=== PATIENT | male | born 1990 | race Hispanic/Latino ===

== ENCOUNTER 2022-06-05 11:49 | Emergency (ER) | payer SELFPAY ==
[2022-06-05] MEDS ORDERED: Ketorolac Tromethamine 30 MG/ML VIAL ONE (13:25)
[2022-06-05 13:39] LABS: #Eosinphils 0.3 thou/uL (0.0-0.7); #Lymphocytes 2.3 thou/uL (1.20-3.40); #Monocytes 0.7 thou/uL (0.11-0.59); #Neutrophils 3.9 thou/uL (1.40-6.50); %Basophils 0.6 % (0.0-1.0); %Eosinophils 4.5 % (0.0-10.0); %Lymphocytes 31.8 % (21.0-51.0); %Monocytes 9.7 % (0.0-10.0); %Neutrophils 53.4 % (42.0-75.0); Hemoglobin 17.3 g/dL (14.0-18.0); Mean Corpuscular HGB CONC 33.8 g/dL (32.0-36.0); Mean Corpuscular Hemoglobin 31.8 pg (27.0-31.0); Mean Corpuscular Volume 94.2 fl (78.0-98.0); Mean Platelet Volume 6.7 fL (7.4-10.4); Platelet Count 339 10x3/uL (130-400); RBC Distribution Width 11.3 % (11.5-14.5); Red Blood Cell (RBC) Count 5.42 mill/uL (4.70-6.10); White Blood Cell (WBC) Count 7.3 10x3/uL (4.8-10.8)
[2022-06-05 14:01] LABS: ALT (SGPT) 20 U/L (8-55); AST (SGOT) 28 U/L (5-34); Albumin 4.3 g/dL (3.5-5.0); Alkaline Phosphatase 127 U/L (40-110); Anion Gap 14 mmol/L (10-20); BUN (Urea Nitrogen) 12 mg/dL (8.9-20.6); Bilirubin, Total 0.6 mg/dL (0.2-1.2); Calc. Creatinine Clearance 0 mL/min (70-130); Calcium 9.7 mg/dL (7.8-10.44); Carbon Dioxide 22 mmol/L (22-29); Chloride 106 mmol/L (98-107); Estimated GFR 124; Globulin 3.3 g/dL (2.4-3.5); Glucose 85 mg/dL (70-105); Lipase 44 U/L (8-78); Potassium 4.3 mmol/L (3.5-5.1); Protein, Total 7.6 g/dL (6.0-8.3); Sodium 138 mmol/L (136-145)
[2022-06-05 14:04] LABS: Bilirubin Negative (Negative); Blood, Urine Negative (Negative); Clarity Extra Turbid (Clear); Glucose, Urine (Dipstick) Normal (Negative); Ketone, Urine Negative (Negative); Leukocyte Negative Leu/uL (Negative); Nitrite Negative (Negative); Protein, Urine (Dipstick) 10 mg/dL (Neg-Trace); Urobilinogen Normal mg/dL (Less than 2)
[2022-06-05 14:06] LABS: Bacteria/HPF Rare-Few HPF (None Seen)
== END 2022-06-05 15:17 | disposition home or self-care (01) ==
LOC: ERS 11:49
DX: R19.7 Diarrhea, unspecified (principal); R94.5 Abnormal results of liver function studies; F17.210 Nicotine dependence, cigarettes, uncomplicated
CPT/HCPCS: 74177; 80053; 81003; 83690; 85025; 96374; J1885